=== PATIENT | female | born 1945 | race African-American/Black ===

== ENCOUNTER 2020-10-14 15:42 | Emergency (ER) | payer MEDICARE ==
[~2020-10-14] VITALS: Ht 160 cm; Wt 80.9 kg
[2020-10-14] MEDS ORDERED: ONDANSETRON PF 4 MG/2 ML VIAL. IVP ONE ×2 (16:30→18:30)
[2020-10-14] MEDS ORDERED: MORPHINE SULFATE 4 MG/ML DISP.SYRIN. IV ONE (16:30)
--- NOTE | 2020-10-14 16:30 | PHYS DOC ---
Past History Past Medical History: Anxiety, High Cholesterol, Hyperthyroid, Stroke (MAYO GROSS APRN) Past Surgical History: Hysterectomy, Other Additional Past Surgical Histo: hernia, back, neck. (MAYO GROSS APRN) Alcohol Use: None (MAYO GROSS APRN) General Adult EDM: Chief Complaint: MUSCLE SPASM/CRAMP HPI: HPI: Patient is a 75-year-old female who presents with a muscle spasm under her left breast. Patient states that she has had this happen before and was treated with pain medication. Patient denies shortness of breath, chest pain. Patient does report pain is worse with deep breathing. Patient of pain. (MAYO GROSS APRN) Review of Systems: Review of Systems: Constitutional: Denies fever or chills Eyes: Denies change in visual acuity HENT: Denies nasal congestion or sore throat Respiratory: Denies cough or shortness of breath Cardiovascular: Denies chest pain or edema GI: Denies abdominal pain, nausea, vomiting, bloody stools or diarrhea : Denies dysuria Musculoskeletal: Reports muscle cramps under left breast Integument: Denies rash Neurologic: Denies headache, focal weakness or sensory changes Endocrine: Denies polyuria or polydipsia Lymphatic: Denies swollen glands Psychiatric: Denies depression or anxiety (MAYO GROSS APRN) Allergies: Allergies: Allergies Coded Allergies Type Severity Reaction Last Updated Verified ibuprofen Allergy Unknown 10/14/20 Yes (MAYO GROSS APRN) Physical Exam: PE: Constitutional: Well developed, well nourished, no acute distress, non-toxic appearance. [] HENT: Normocephalic, atraumatic, bilateral external ears normal, oropharynx moist, no oral exudates, nose normal. [] Eyes: PERRLA, EOMI, conjunctiva normal, no discharge. [] Neck: Normal range of motion, no tenderness, supple, no stridor. [] Cardiovascular:Heart rate regular rhythm, no murmur [] Lungs & Thorax: Bilateral breath sounds clear to auscultation [] Abdomen: Bowel sounds normal, soft, no tenderness, no masses, no pulsatile masses. [] Skin: Warm, dry, no erythema, no rash. [] Back: No tenderness, no CVA tenderness. [] Extremities: No tenderness, no cyanosis, no clubbing, ROM intact, no edema. [] Neurologic: Alert and oriented X 3, normal motor function, normal sensory function, no focal deficits noted. [] Psychologic: Affect normal, judgement normal, mood normal. [] (MAYO GROSS APRN) Current Patient Data: Vital Signs: Vital Signs Date Time Temp Pulse Resp B/P (MAP) Pulse Ox O2 Delivery O2 Flow Rate FiO2 10/14/20 15:47 97.6 75 16 158/71 (100) 98 Room Air (MAYO GROSS APRN) EKG: EKG: [] (MAYO GROSS APRN) Radiology/Procedures: Radiology/Procedures: []Study: CT chest, abdomen and pelvis without contrast INDICATION: Left breast/axillary pain. Left upper quadrant pain. COMPARISON: None. TECHNIQUE: Helical CT imaging performed of the chest, abdomen and pelvis performed without the use of intravenous contrast. Coronal and sagittal reformats were obtained. One or more of the following individualized dose reduction techniques were utilized for this examination: 1. Automated exposure control 2. Adjustment of the mA and/or kV according to patient size 3. Use of iterative reconstruction technique. FINDINGS: CT Chest: Scattered calcific atherosclerosis. Nonaneurysmal aorta. Normal main pulmonary artery caliber. Heart size is within normal limits. Mediastinal and hilar lymph nodes are subcentimeter short axis. Several small lymph nodes within the epiphrenic fat. No significant pericardial fluid. Within normal limits esophagus. No suspicious pulmonary nodule. No pneumothorax or pleural effusion. Mild basilar volume loss/scarring. Patent central airways. No axillary lymphadenopathy. The partially imaged thyroid is unremarkable. The breasts would be better assessed with mammography. No displaced rib fracture. Partially imaged ACDF construct. Bridging osteophytes across C7-T1. No concerning thoracic vertebral body height loss. Bridging osteophytes along the thoracic spine as can be seen with diffuse idiopathic skeletal hyperostosis. Spinal cord stimulator device with the electrode paddles around T8-T9. A few small disc bulges/protrusions without CT evidence for severe central canal stenosis. Scattered mild and moderate osseous neural foraminal stenosis such as bilaterally at T1-T2, right more so than left at T2-T3, on the left at T3-T4 and right more so than left at T4-T5. CT Abdomen/Pelvis: Mildly undulating hepatic margins. Prominence of the caudate lobe. Hepatic steatosis. Gallstones and a few punctate calcified gallstones. Nondilated biliary tree. Mild prominence of the main pancreatic duct at the head and uncinate process but without a discrete mass or tail atrophy. The spleen is within normal limits for size. No adrenal gland mass. No collecting system dilatation. Tiny low-attenuation focus exophytic off the right kidney lower pole, image 63 series 5, is incompletely characterized. Mildly distended urinary bladder without wall thickening. Small bladder diverticulum lateralized to the left, image 120 series 5. Absent uterus. No adnexal mass. Mild constipation. No inflammatory changes at the expected location of the appendix. Poorly evaluated stomach on account of underdistention. Nonobstructed small bowel. Minimal calcific atherosclerosis. Nonaneurysmal aorta. No lymphadenopathy by size criteria. No free fluid or pneumoperitoneum. Ventral midline pelvic surgical changes. Dorsal fusion construct spanning L3-L5. Intact hardware with solid osseous bridging across the operative levels. No acute osseous abnormality seen throughout the pelvis. Scattered chronic/degenerative findings. IMPRESSION: CT Chest: 1. No acute abnormality seen throughout the chest with particular attention paid to the left breast/axilla given provided history. Note is made that the breasts themselves would be better assessed with mammography. 2. Chronic observations detailed in the body the report. CT Abdomen/Pelvis: 1. No acute process seen throughout the abdomen or pelvis. 2. Mild constipation. 3. Hepatic steatosis. Mildly undulating hepatic margins and prominence of the caudate lobe could indicate cirrhosis however the spleen is normal in size. 4. Additional chronic findings detailed in the body the report. Electronically signed by: CLAUDETTE BOLDEN MD (10/14/2020 5:32 PM) [facility] (MAYO GROSS APRN) Radiology/Procedures: Findings: The administration of contrast reveals no newly apparent abnormality of the liver, gallbladder, adrenal glands, spleen, kidneys, bladder, colon, small bowel and stomach. Patent central portal veins and superior mesenteric vein. No aortic dissection. Contrast does allow for better appreciation of pancreatic duct dilatation primarily within the uncinate process and head measuring up to 7 mm. No obstructing mass is apparent and the common bile duct is within normal limits for patient age at 5 mm. No aggressive osseous process. Impression: 1. No acute abnormality is seen throughout the abdomen or pelvis now that the exam was performed with contrast. 2. The main pancreatic duct is dilated primarily within the uncinate process and body at up to 7 mm. No discrete pancreatic mass or other obstructing process is apparent. No findings of pancreatitis. Follow-up is recommended such as in 3 months to confirm stability. MRI with MRCP would be preferable but CT pancreas protocol may be needed given surgical hardware and a spinal cord stimulator. Electronically signed by: CLAUDETTE BOLDEN MD (10/14/2020 9:02 PM) [facility] (FREDRICK CHAVEZ MD) Heart Score: C/O Chest Pain: No Risk Factors: Risk Factors: DM, Current or recent (<one month) smoker, HTN, HLP, family history of CAD, obesity. Risk Scores: Score 0 - 3: 2.5% MACE over next 6 weeks - Discharge Home Score 4 - 6: 20.3% MACE over next 6 weeks - Admit for Clinical Observation Score 7 - 10: 72.7% MACE over next 6 weeks - Early Invasive Strategies (MAYO GROSS APRN) Course & Med Decision Making: Course & Med Decision Making Improved slightly.Pertinent Labs and Imaging studies reviewed. (See chart for details) [] Patient is being seen in the emergency room for a muscle cramp under her left breast. Patient reports this is happened in the past before and was prescribed pain medication. Patient denies shortness of breath, chest pain. Patient given morphine for pain control. CT of chest and abdomen were negative for any acute abnormalities. All labs were unremarkable. UA is negative for infection. Spoke with patient and daughter and informed them of test results. Patient is reporting some relief of pain. CT of chest and abdomen ordered with contrast to rule out pancreatitis and cholecystitis. Lipase of 60. Troponin is negative. Transfer of patient care to Dr. Chavez (MAYO GROSS APRN) Course & Med Decision Making Patient care handed off to me at checkout pending CT of the abdomen pelvis. No acute findings in the abdomen pelvis as noted above. Vital signs not concerning. Laboratory analysis not concerning. Urinalysis not concerning. Pain controlled. Discussed all findings with family and recommended follow-up with primary care physician first thing in the morning to update on ED visit. Gave strict return precautions to the ED. Gave pain and nausea medications for home. Gave strict return precautions to the ED. Family grateful, verbalized understanding and agreed with plan of discharge. (CONDRAFREDRICK Disclaimer: Dragphil Disclaimer: This electronic medical record was generated, in whole or in part, using a voice recognition dictation system. (MAYO GROSS APRN) Departure Departure: Impression: Primary Impression: Abdominal pain Qualified Codes: R10.12 - Left upper quadrant pain Disposition: HOME / SELF CARE / HOMELESS Condition: STABLE Referrals: DAI OROURKE (PCP) Patient Instructions: Abdominal Pain (Nonspecific) Scripts Ondansetron Hcl (ZOFRAN) 4 Mg Tablet 4 MG PO TID PRN PRN for NAUSEA, #9 TAB Prov: MAYO GROSS APRN 10/14/20 Hydrocodone Bit/Acetaminophen (HYDROCODONE-APAP 5-325 ) 1 Each Tablet 1 TAB PO PRN Q6HRS PRN for PAIN for 3 Days, #12 TAB 0 Refills Prov: MAYO GROSS APRN 10/14/20 MAYO GROSS APRN October 14, 2020 16:29 FREDRICK CHAVEZ MD October 14, 2020 21:20
[2020-10-14 17:24] LABS: BASO # 0.1 x10^3/uL (0.0-0.2); BASO % 1 % (0-3); EOS % 1 % (0-3); HEMATOCRIT 36.1 % (36.0-47.0); LYMPH # 1.3 x10^3/uL (1.0-4.8); LYMPH % 24 % (24-48); MEAN CORPUSCULAR HEMOGLOBIN 31 pg (25-35); MEAN CORPUSCULAR HGB CONC 33 g/dL (31-37); MEAN CORPUSCULAR VOLUME 93 fL (79-100); MONO # 0.4 x10^3/uL (0.0-1.1); MONO % 7 % (0-9); NEUT # 3.6 x10^3uL (1.8-7.7); NEUT % 67 % (31-73); PLATELET COUNT 150 x10^3/uL (140-400); RED BLOOD COUNT 3.87 x10^6/uL (3.50-5.40); RED CELL DISTRIBUTION WIDTH 13.1 % (11.5-14.5); WHITE BLOOD COUNT 5.3 x10^3/uL (4.0-11.0)
[2020-10-14 17:29] LABS: CALCIUM 8.6 mg/dL (8.5-10.1); CREATININE 0.9 mg/dL (0.6-1.0); GFR 74.1
--- NOTE | 2020-10-14 17:34 | RAD ---
Study: CT chest, abdomen and pelvis without contrast INDICATION: Left breast/axillary pain. Left upper quadrant pain. COMPARISON: None. TECHNIQUE: Helical CT imaging performed of the chest, abdomen and pelvis performed without the use of intravenous contrast. Coronal and sagittal reformats were obtained. One or more of the following individualized dose reduction techniques were utilized for this examinat ion: 1. Automated exposure control 2. Adjustment of the mA and/or kV according to patient size 3. Use of iterative reconstruction technique. FINDINGS: CT Chest: Scattered calcific atherosclerosis. Nonaneurysmal aorta. Normal main pulmonary artery caliber. Heart size is within normal limits. Mediastinal and hilar lymph nodes are subcentimeter short axis. Several small lymph nodes within the epiphrenic fat. No significant pericardial fluid. Within normal limits esophagus. No suspicious pulmonary nodule. No pneumothorax or pleural effusion. Mild basilar volume loss/scarrin g. Patent central airways. No axillary lymphadenopathy. The partially imaged thyroid is unremarkable. The breasts would be emeli r assessed with mammography. No displaced rib fracture. Partially imaged ACDF construct. Bridging osteophytes across C7-T1. No con cerning thoracic vertebral body height loss. Bridging osteophytes along the thoracic spine as can be seen with diffuse idiopathic skeletal hyperostosis. Spinal cord stimulator device with the electrode paddles around T8-T9. A few small disc bulges/protrusions without CT evidence for severe central elsie l stenosis. Scattered mild and moderate osseous neural foraminal stenosis such as bilaterally at T1-T 2, right more so than left at T2-T3, on the left at T3-T4 and right more so than left at T4-T5. CT Abdomen/Pelvis: Mildly undulating hepatic margins. Prominence of the caudate lobe. Hepatic steatosis. Gallstones and a few punctate calcified gallstones. Nondilated biliary tree. Mild prominence of the main pancreatic duct at the head and uncinate process but without a discrete mass or tail atrophy. The spleen is with in normal limits for size. No adrenal gland mass. No collecting system dilatation. Tiny low-attenuation focus exophytic off the right kidney lower pole , image 63 series 5, is incompletely characterized. Mildly distended urinary bladder without wall thi ckening. Small bladder diverticulum lateralized to the left, image 120 series 5. Absent uterus. No ad nexal mass. Mild constipation. No inflammatory changes at the expected location of the appendix. Poorly evaluated stomach on account of underdistention. Nonobstructed small bowel. Minimal calcific atherosclerosis. Nonaneurysmal aorta. No lymphadenopathy by size criteria. No free f luid or pneumoperitoneum. Ventral midline pelvic surgical changes. Dorsal fusion construct spanning L3-L5. Intact hardware with solid osseous bridging across the operat lety levels. No acute osseous abnormality seen throughout the pelvis. Scattered chronic/degenerative f indings. IMPRESSION: CT Chest: 1. No acute abnormality seen throughout the chest with particular attention paid to the left breast/ axilla given provided history. Note is made that the breasts themselves would be better assessed with mammography. 2. Chronic observations detailed in the body the report. CT Abdomen/Pelvis: 1. No acute process seen throughout the abdomen or pelvis. 2. Mild constipation. 3. Hepatic steatosis. Mildly undulating hepatic margins and prominence of the caudate lobe could ind icate cirrhosis however the spleen is normal in size. 4. Additional chronic findings detailed in the body the report. Electronically signed by: CLAUDETTE BOLDEN MD (10/14/2020 5:32 PM) [facility]
[2020-10-14 17:35] LABS: ALBUMIN 3.1 g/dL (3.4-5.0); ALBUMIN/GLOBULIN RATIO 0.6 (1.0-1.7); TOTAL BILIRUBIN 0.2 mg/dL (0.2-1.0); TOTAL PROTEIN 7.9 g/dL (6.4-8.2)
--- NOTE | 2020-10-14 17:55 | EKG ---
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
[2020-10-14 18:05] LABS: CLARITY,URINE CLEAR; COLOR,URINE YELLOW
[2020-10-14 18:06] LABS: BACTERIA,URINE 0 /HPF (0-FEW); BILIRUBIN,URINE NEG (NEG); GLUCOSE,URINE 500 mg/dL (NEG); NITRITE,URINE NEG (NEG); SQUAMOUS EPITHELIAL CELL,UR MOD /LPF; UROBILINOGEN,URINE 0.2 mg/dL (0.2 mg/dL)
[2020-10-14] MEDS ORDERED: HYDROmorphone PF 1 MG/ML DISP.SYRIN IVP ONE ×2 (18:30→20:45)
[2020-10-14] MEDS ORDERED: IOHEXOL 300 MG/ML 75 ML VIAL. IV ONE (20:15)
[2020-10-14] MEDS ORDERED: HYDR-2155 PO (20:56)
[2020-10-14] MEDS ORDERED: ONDA4TAB7 PO (20:56)
--- NOTE | 2020-10-14 21:04 | RAD ---
Study: CT abdomen/pelvis with intravenous contrast Indication: Left upper quadrant pain. Comparison: Same day CT without contrast 10/14/2020 Technique: Helical CT imaging performed of the abdomen and pelvis after the intravenous administratio n of 75 cc Omnipaque 300 contrast. Sagittal and coronal reformats were obtained. One or more of the following individualized dose reduction techniques were utilized for this examinat ion: 1. Automated exposure control 2. Adjustment of the mA and/or kV according to patient size 3. Use of iterative reconstruction technique. Findings: The administration of contrast reveals no newly apparent abnormality of the liver, gallbladder, adren al glands, spleen, kidneys, bladder, colon, small bowel and stomach. Patent central portal veins and superior mesenteric vein. No aortic dissection. Contrast does allow for better appreciation of pancreatic duct dilatation primarily within the uncina te process and head measuring up to 7 mm. No obstructing mass is apparent and the common bile duct is within normal limits for patient age at 5 mm. No aggressive osseous process. Impression: 1. No acute abnormality is seen throughout the abdomen or pelvis now that the exam was performed wit h contrast. 2. The main pancreatic duct is dilated primarily within the uncinate process and body at up to 7 mm. No discrete pancreatic mass or other obstructing process is apparent. No findings of pancreatitis. F ollow-up is recommended such as in 3 months to confirm stability. MRI with MRCP would be preferable b ut CT pancreas protocol may be needed given surgical hardware and a spinal cord stimulator. Electronically signed by: CLAUDETTE BOLDEN MD (10/14/2020 9:02 PM) [facility]
[2020-10-14 21:12] VITALS: BP 137/72
== END 2020-10-14 21:40 | disposition home or self-care (01) ==
LOC: ER 15:42
DX: R10.12 Left upper quadrant pain (principal); M62.838 Other muscle spasm; F41.9 Anxiety disorder, unspecified; E78.00 Pure hypercholesterolemia, unspecified; E05.90 Thyrotoxicosis, unspecified without thyrotoxic crisis or storm; Z86.73 Personal history of transient ischemic attack (TIA), and cerebral infarction without residual deficits; Z90.710 Acquired absence of both cervix and uterus; Z88.6 Allergy status to analgesic agent
CPT/HCPCS: 36415; 71250; 74176; 74177; 80053; 81001; 83690; 84484; 85025; 93005; 96374; 96375; 96376; 99284; J1170; J2270; J2405; Q9967; 99285-25

== ENCOUNTER → 2021-07-28 | Outpatient (CLI) | payer MEDICARE, MEDICAID ==
[~2021-07-28] MED LIST: HYDR-2155 PO; ONDA4TAB7 PO
[2021-07-28 11:14] LABS: BASO % 1 % (0-3); EOS # 0.1 x10^3/uL (0.0-0.7); EOS % 1 % (0-3); HEMATOCRIT 38.9 % (36.0-47.0); HEMOGLOBIN 12.7 g/dL (12.0-15.5); LYMPH # 1.5 x10^3/uL (1.0-4.8); LYMPH % 31 % (24-48); MEAN CORPUSCULAR HEMOGLOBIN 32 pg (25-35); MEAN CORPUSCULAR HGB CONC 33 g/dL (31-37); MEAN CORPUSCULAR VOLUME 98 fL (79-100); MONO # 0.4 x10^3/uL (0.0-1.1); MONO % 7 % (0-9); NEUT # 2.9 x10^3uL (1.8-7.7); NEUT % 60 % (31-73); PLATELET COUNT 211 x10^3/uL (140-400); RED BLOOD COUNT 3.99 x10^6/uL (3.50-5.40); RED CELL DISTRIBUTION WIDTH 14.2 % (11.5-14.5); WHITE BLOOD COUNT 4.9 x10^3/uL (4.0-11.0)
[2021-07-28 11:31] LABS: ALBUMIN 2.9 g/dL (3.4-5.0); ALBUMIN/GLOBULIN RATIO 0.5 (1.0-1.7); CALCIUM 9.1 mg/dL (8.5-10.1); GFR 65.6; POTASSIUM 3.9 mmol/L (3.5-5.1); TOTAL BILIRUBIN 0.3 mg/dL (0.2-1.0); TOTAL PROTEIN 8.3 g/dL (6.4-8.2)
[2021-07-29 01:10] LABS: HEMOGLOBIN A1C 9.3 % (4.8-5.6)
[2021-07-29 15:42] LABS: CHOLESTEROL/HDL RATIO 2.6
== END ==
LOC: LAB 09:52
PROVIDERS: ATTEND Family Medicine
DX: I10 Essential (primary) hypertension (principal); E11.9 Type 2 diabetes mellitus without complications; E53.9 Vitamin B deficiency, unspecified; M85.80 Other specified disorders of bone density and structure, unspecified site
CPT/HCPCS: 36415; 80053; 80061; 82306; 82607; 82746; 83036; 85025

== ENCOUNTER → 2021-08-10 | Outpatient (CLI) | payer MEDICARE, MEDICAID ==
--- NOTE | 2021-08-10 14:58 | RAD ---
Left knee 3 views. HISTORY: Left knee pain 3 views were taken the left knee. There is not evidence of an acute fracture. There is a small joint effusion. There is no other acute osseous abnormality. 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 IMPRESSION: 1. Chondroid lesion distal humerus. 2. Small joint effusion. 3. No other acute abnormality left knee. Electronically signed by: Constantine Mcgregor MD (08/10/2021 2:55 PM) [facility]
== END ==
LOC: RAD 14:11
PROVIDERS: ATTEND Nurse Practitioner Family
DX: M25.462 Effusion, left knee (principal); M89.8X5 Other specified disorders of bone, thigh
CPT/HCPCS: 73562